=== PATIENT | female | born 1990 | race Caucasian/White ===

== ENCOUNTER 2019-12-12 19:10 | Emergency (ER) | payer OTHER, SELFPAY ==
[2019-12-12 19:11] VITALS: BP 140/67; PULSE 90; RESP 16; TEMP 37.2; O2SAT 100; BMI 27.1
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
[2019-12-12] MEDS: Ondansetron ODT 4 MG Tablet PO (19:48)
[2019-12-12] MEDS: oxyCODONE 5 MG Tablet 10 MG PO (21:19)
== END 2019-12-12 21:23 | disposition home or self-care (01) ==
PROVIDERS: Emergency Provider Student in an Organized Health Care Education/Training Program; PCP Family Medicine
DX: S16.1XXA Strain of muscle, fascia and tendon at neck level, initial encounter (principal); S09.90XA Unspecified injury of head, initial encounter; V43.62XA Car passenger injured in collision with other type car in traffic accident, initial encounter; Y93.I9 Activity, other involving external motion; Y92.410 Unspecified street and highway as the place of occurrence of the external cause; Y99.8 Other external cause status
CPT/HCPCS: 70450; 72125; 99285